=== PATIENT | male | born 1970 | race Hispanic/Latino ===

== ENCOUNTER → 2023-07-01 | Outpatient (CLI) | payer OTHER ==
[~2023-07-01] VITALS: Ht 165.1 cm; Wt 57.2 kg
[~2023-07-01] MED LIST: 0.9% NACL 500ML IV.SOLN 500 ML IV ONE; AMLO-257 PO; AMLO5TAB4 PO; CEFAZOLIN SODIUM 2 GM VIAL ONE; CHOL100046 PO; CLOP-31 PO; FOLI1TAB85 PO; Folic Acid/Vitamin B Comp W-C PO; GABA-529 PO; PANT40TA54 PO; SEVE800T27 PO; SODI650T PO; TAMS-1 PO; VITA-395 PO
[2023-07-01 14:45] LABS: HEMATOCRIT 35.8 % (42-54); MEAN CORPUSCULAR HEMOGLOBIN 34.1 pg (27.0-33.0); MEAN CORPUSCULAR HGB CONC 33.8 g/dL (32.0-36.0); MEAN CORPUSCULAR VOLUME 100.8 fL (79-99); RED BLOOD CELL COUNT(AUTO) 3.55 MIL/uL (4.50-6.20); RED CELL DISTRIBUTION WIDTH 14.1 % (11.0-15.5); WHITE BLOOD COUNT (AUTO) 5.8 K/uL (4.8-10.8)
[2023-07-01 15:02] LABS: CREATININE 5.6 mg/dL (0.5-1.5); POTASSIUM 4.6 mmol/L (3.5-5.1)
[2023-07-01 15:06] LABS: INR 1.01 (0.85-1.15); PROTHROMBIN TIME 11.7 SEC (9.6-11.6)
[2023-07-01 15:08] LABS: PARTIAL THROMBOPLASTIN TIME 28.1 SEC (26.3-35.5)
[2023-07-01 16:11] VITALS: BP 183/49; PULSE 80; RESP 18
[2023-07-02 10:55] VITALS: BP 141/58; PULSE 78; RESP 20
[2023-07-02 13:25] LABS: CREATININE 7.7 mg/dL (0.5-1.5); POTASSIUM 5.2 mmol/L (3.5-5.1)
== END | disposition home or self-care (01) ==
LOC: DAH 13:48 → EDSTATUS 19:00 → DAH 07-02 10:05
PROVIDERS: ATTEND Thoracic Surgery (Cardiothoracic Vascular Surgery)
DX: Z01.818 Encounter for other preprocedural examination (principal); N18.6 End stage renal disease; I21.9 Acute myocardial infarction, unspecified
CPT/HCPCS: 71045; 80048; 85027; 85610; 85730; 86850; 86900; 86901; 36415; 93005; A6260; J7040; J0690

== ENCOUNTER → 2023-10-10 | Outpatient (CLI) | payer OTHER ==
[~2023-10-10] VITALS: Ht 165.1 cm; Wt 59.8 kg
[~2023-10-10] MED LIST changes: -0.9% NACL 500ML IV.SOLN 500 ML IV ONE; -AMLO5TAB4 PO; -CEFAZOLIN SODIUM 2 GM VIAL ONE; -Folic Acid/Vitamin B Comp W-C PO; -PANT40TA54 PO; -SODI650T PO; -TAMS-1 PO
[2023-10-10 08:57] LABS: BASOPHILS # (AUTO) 0.08 K/uL (0.00-0.20); BASOPHILS % (AUTO) 0.9 % (0.0-5.0); EOSINOPHILS # (AUTO) 0.34 K/uL (0.00-0.70); HEMATOCRIT 34.2 % (42-54); IMMATURE GRANULOCYTE ABSOLUTE 0.04 K/uL (0-1); LYMPHOCYTES # (AUTO) 1.8 K/uL (1.0-4.8); LYMPHOCYTES % (AUTO) 21.6 % (21.0-51.0); MEAN CORPUSCULAR HEMOGLOBIN 33.9 pg (27.0-33.0); MEAN CORPUSCULAR HGB CONC 33.6 g/dL (32.0-36.0); MEAN CORPUSCULAR VOLUME 100.9 fL (79-99); MONOCYTES % (AUTO) 11.4 % (3.0-13.0); NEUTROPHILS # (AUTO) 5.2 K/uL (1.8-7.7); NEUTROPHILS % (AUTO) 61.6 % (40.0-77.0); PLATELET COUNT (AUTO) 222 K/uL (130-400); RED BLOOD CELL COUNT(AUTO) 3.39 MIL/uL (4.50-6.20); RED CELL DISTRIBUTION WIDTH 13.9 % (11.0-15.5); WHITE BLOOD COUNT (AUTO) 8.5 K/uL (4.8-10.8)
[2023-10-10 09:07] LABS: CREATININE 6.3 mg/dL (0.5-1.5)
[2023-10-10 09:21] LABS: INR 0.97 (0.85-1.15); PROTHROMBIN TIME 11.3 SEC (9.6-11.6)
[2023-10-10 09:23] LABS: PARTIAL THROMBOPLASTIN TIME 27.6 SEC (26.3-35.5)
[2023-10-10 09:27] VITALS: BP 181/64; PULSE 86; RESP 19
== END | disposition home or self-care (01) ==
LOC: EDSTATUS 08:00 → DAH 10:00
PROVIDERS: ATTEND Student in an Organized Health Care Education/Training Program
DX: N18.6 End stage renal disease (principal)
CPT/HCPCS: 80048; 85025; 85610; 85730; 36415; A6260